=== PATIENT | female | born 1955 | race Hispanic/Latino ===

== ENCOUNTER → 2019-06-16 | Day surgery (SDC) | payer OTHER ==
[~2019-06-16] MED LIST: LIDOCAINE HCL 2% LOCAL INJ 5 ML SDV VIAL INJ ONE; LOSARTAN POTASS25 MG PO; MIDAZOLAM HCL 2 MG/2 ML VIAL ONE; OXYBUTYNIN CHLOR5 MG PO; PROPOFOL IV EMULSION 10 MG/ML 50 ML VIAL ONE; ULTRAM50 MG PO
--- OUTSIDE RECORDS SUMMARY | 2019-06-16 09:45 | XMS REPORT ---
Author Author [facility] Address Unknown Phone Unavailable Care Team Providers Care Managed Care Liaison Name Role Phone Rosa CARRILLO Unavailable Unavailable Problems This patient has no known problems. Allergies, Adverse Reactions, Alerts This patient has no known allergies or adverse reactions. Medications This patient has no known medications. Results Test Description Test Time Test Comments Text Results Atomic Results Result Comments FL, [employer] IN OR/30 MINUTE INCREMENTS 2017-05-04 11:01:00 Reason for exam:->Arthroscopic Arthrodisis FLUOROSCOPIC UNIT UTILIZED-NO INTERPRETATION REQUESTED. TROLYTES 2017-04-15 13:46:00 SODIUM (BEAKER) (test jcfn=308) 141 meq/L 136-145 POTASSIUM (BEAKER) (test vbis=717) 4.0 meq/L 3.5-5.1 CHLORIDE (BEAKER) (test yety=372) 108 meq/L 98-107 CO2 (BEAKER) (test lmbv=144) 26 meq/L 22-29 BUN AND [id number] 13:46:00* Test Item Value Reference Range Comments BLOOD UREA NITROGEN (BEAKER) (test vgkx=569) 8 mg/dL 7-21 CREATININE (BEAKER) (test hkwx=099) 0.60 mg/dL 0.57-1.25 EGFR (BEAKER) (test bbaz=6468) 102 mL/min/1.73 sq m ESTIMATED GFR IS NOT ACCURATE CREATININE CLEARANCE IN PREDICTING GLOMERULAR FILTRATION RATE. ESTIMATED GFR IS NOT APPLICABLE FOR DIALYSIS PATIENTS. [id number] 13:21:00* Test Item Value Reference Range Comments HEMOGLOBIN (BEAKER) (test eikw=408) 13.6 GM/DL 11.2-15.7
--- OUTSIDE RECORDS SUMMARY | 2019-06-16 09:45 | XMS REPORT ---
Author Author Admin, [place] Organization Unknown Address Unknown Phone Unavailable PROBLEMS Condition Status Date Provider Notes Cough active Laura Elen Diarrhea completed - Belle Sung Screening for cardiovascular condition active Belle Sung Screening for diabetes mellitus active Belle Sung Colon cancer screening active Belle Sung Ulcerative colitis active Belle Sung Well woman exam active Belle Sung Acute otitis media, right completed - Belle Sung URI completed - Madhumita William Sore throat completed - Madhumita William Overweight active Triston [place] Tobacco use active Elliot Carrizales [place] DIARRHEA completed - Madhumita William Cough completed - Madhumita William Fever completed - Madhumita William Chest pain active Thompson [place] COPD, acute exacerbation completed - Audrey Ari Vaccine against flu/influenza completed - [place] Pain in left lower leg completed - [place] post surgery Sinusitis, acute completed - Audrey Ari Weight loss abnormal completed - [place] Lumbosacral radiculopathy active Audrey Ari BMI 27.0-27.9 active Madhumita William Piriformis muscle spasm, right active Eliel Crum Anxiety active Audrey Ari DEPRESSION, MAJOR active Audrey Ari Arthritis, ankle/foot active Audrey Ari OTITIS MEDIA, ACUTE, RIGHT completed - [place] Muscle spasm of neck completed - [place] Bronchitis, acute completed - Audrey Ari Otitis media, left completed - Audrey Ari Tinea corporis completed - Audrey Ari Flu vaccine completed - [place] Foot pain, left completed - [place] ABDOMINAL PAIN, EPIGASTRIC completed - Audrey Ari Arrhythmia? completed - [place] GERD active Audrey Ari Chronic back pain active Audrey Ari previous MRI at [facility] but no records obtained. Recent MRI denied by insurance. Unable to follow with pain management HYPERTENSION active Audrey Ari COPD active Audrey Ari Mixed incontinence active Audrey Ari ENCOUNTERS Date Type Provider Location Encounter Diagnosis - Ambulatory Encounter [facility] [place] [facility] [facility] UNK - Ambulatory Encounter Belle Jorge [facility] UNK - Ambulatory Encounter Sarah Monroy [facility] UNK - Ambulatory Encounter Laura Myrick [facility] UNK - Ambulatory Encounter Triston [place] [facility] Laura Myrick [facility] UNK - Ambulatory Encounter Laura Kasper [facility] UNK - Ambulatory Encounter F[facility] - Ambulatory Encounter Belle Sung Belle Sung [facility] UNK - Ambulatory Encounter Belle Sung Belle Sung [facility] UNK - Ambulatory Encounter Belle Sung Belle Sung [facility] UNK - Ambulatory Encounter Belle Sung Belle Sung [facility] UNK - Ambulatory Encounter Tristno Kasper MedAdherence [facility] UNK - Ambulatory Encounter Laura Myrick [facility] UNK - Ambulatory Encounter Laura Garcia [facility] Cough - Ambulatory Encounter Belle Sung Belle Sung [facility] UNK - Ambulatory Encounter F[facility] - Ambulatory Encounter Fax Status [facility] UN[facility] - Ambulatory Encounter Fax Status [facility] UNK - Ambulatory Encounter Fax Status [facility] UNK - Ambulatory Encounter Fax Status [facility] UNK - Ambulatory Encounter Fax Status [facility] UNK - Ambulatory Encounter Belle Sung Belle Sung [facility] UNK - Ambulatory Encounter Radha Kasper MedAdherence Di [facility]breu [facility] - Ambulatory Encounter Belle Sung Belle Sung [facility] UNK - Ambulatory Encounter Belle Sung Belle Sung [facility] UNK - Ambulatory Encounter Belle Sung Belle Sung [facility] UNK - Ambulatory Encounter Triston Short Belle Sung [place] Tracey Garcia [facility] Well woman examUlcerative colitisColon cancer screeningScreening for diabetes mellitusScreening for cardiovascular conditionDiarrhea - Ambulatory Encounter Belle Sung Belle Sung [facility] UNK - Ambulatory Encounter Belle Sung Belle Sung [facility] UNK - Ambulatory Encounter Belle Sung Belle Sung [facility] UNK - Ambulatory Encounter Belle Sung Belle Sung [facility] UNK - Ambulatory Encounter Jodi Odonnell Sung [place] Sheree Argueta [facility] Acute otitis media, right - Ambulatory Encounter Vicky Frank [facility] UNK - Ambulatory Encounter Radha Kasper MedAdherence Anusha Galvin [facility] Contact Center UNK - Ambulatory Encounter Jodi Graham [facility] UNK - Ambulatory Encounter Tracey Kasper MedAdherence Elroy Craig [facility] Services UNK - Ambulatory Encounter Sarah Kasper Med[facility]herence [facility] UNK - Ambulatory Encounter Radha Kasper MedAdherence Di Hernández Kojo [facility] Services UNK - Ambulatory Encounter Fax Status [facility] Services UNK - Ambulatory Encounter Fax Status [facility] Services UNK - Ambulatory Encounter Fax Status [facility] Services UNK - Ambulatory Encounter Sarah Aziza Porfirio Jeimy Sheikh [facility] UNK - Ambulatory Encounter Sarah Aziza Porfirio [facility] UNK - Ambulatory Encounter Sarah Aziza Porfirio [facility] UNK - Ambulatory Encounter Sarah Aziza Porfirio Carrie Aguilar [facility] UNK - Ambulatory Encounter Madhumita William Madhumita William [facility] UNK - Ambulatory Encounter Madhumita William Madhumita William Vicky Frank [facility] FeverCoughDIARRHEASore throatURI - Ambulatory Encounter Laura Mclean [facility] UNK - Ambulatory Encounter Karri Mclean [facility] UNK - Ambulatory Encounter Karri Mclean [facility] UNK - Ambulatory Encounter Laura Lopez [facility] Contact Center UNK - Ambulatory Encounter Fax Status [facility] Services UNK - Ambulatory Encounter Fax Status [facility] Services UNK - Ambulatory Encounter Fax Status [facility] UNK - Ambulatory Encounter Laura Myrick [facility] UNK - Ambulatory Encounter Laura Myrick Anne Bobby Babcock Adolfo [facility] Sore throatURI - Ambulatory Encounter Elliot [place]abuife Elliot Carrizales [place] [facility] UNK - Ambulatory Encounter Elliot Pakabuife Elliot Carrizales [place] [facility] UNK - Ambulatory Encounter April Reese [facility] UNK - Ambulatory Encounter Fax Status [facility] UNK - Ambulatory Encounter Fax Status [facility] UNK - Ambulatory Encounter Fax Status [facility] UNK - Ambulatory Encounter Fax Status [facility] UNK - Ambulatory Encounter Fax Status [facility] UNK - Ambulatory Encounter Fax Status [facility] UNK - Ambulatory Encounter Elliot Pakabuife Elliot Santosian [place] [facility] UNK - Ambulatory Encounter Elliot Pakabuife Elliot Santosian [place] [facility] UNK - Ambulatory Encounter Elliot Pakabuife Elliot Santosian [place] [facility] UNK - Ambulatory Encounter Triston Archibaldkwuemeluz elena Pakabuiangeles Floyd [facility] Tobacco useOverweight - Ambulatory Encounter Yoko Mata [facility] UNK - Ambulatory Encounter Radha Kasper [facility] UNK - Ambulatory Encounter Radha Kasper [facility] - Ambulatory Encounter Audrey Ari Orantesbeen [facility] UNK - Ambulatory Encounter Paula Richey [facility] UNK - Ambulatory Encounter Paula Richey [facility] UNK - Ambulatory Encounter Vicky Lam [facility] UNK - Ambulatory Encounter Audrey Ari Chapman [facility] UNK - Ambulatory Encounter Audrey Ari Orantesbesofie Antoine [facility] COPD, acute exacerbationFeverCoughDIARRHEA - Ambulatory Encounter [place] [facility] UNK - Ambulatory Encounter Donita Longoriao MedAdherence [facility] UNK - Ambulatory Encounter Donita Rajat MedAdherence [facility] UNK - Ambulatory Encounter Fax Status [facility] Services UNK - Ambulatory Encounter Fax Status [facility] UNK - Ambulatory Encounter Radha Kasper [facility] - Ambulatory Encounter Thompson Vail [facility] UNK - Ambulatory Encounter Isaiah Dinesh [facility] UNK - Ambulatory Encounter Isaiah Edwardsillo [facility] UNK - Ambulatory Encounter April Vail [facility] Arrhythmia?Foot pain, leftFlu vaccineMuscle spasm of neckOTITIS MEDIA, ACUTE, RIGHTWeight loss abnormalPain in left lower legVaccine against flu/influenzaChest pain - Ambulatory Encounter Radha [facility] - [facility] Encounter Radha [facility]asper [facility] - Ambulatory Encounter Radha Kasper MedAdherence [facility] UNK - Ambulatory Encounter Radha Kasper [facility] - Ambulatory Encounter Radha Kasper MedAdherence [facility] UNK - Ambulatory Encounter Radha Kasper MedAdherence [facility] UNK - Ambulatory Encounter Audrey Ari Audrey Ari [facility] UNK - Ambulatory Encounter Audrey Ari Audrey Ari Mclean [facility] COPD, acute exacerbation - Ambulatory Encounter Donita Earl [facility] UN[facility] - Ambulatory Encounter Donita Earl [facility] UNK - Ambulatory Encounter Donita Earl [facility] UNK - Ambulatory Encounter Donita Earl MedAdherence Link[facility] UNK - Ambulatory Encounter Donita Earl MedAdherence [facility] UNK - Ambulatory Encounter Donita Earl MedAdherence [facility] UNK - Ambulatory Encounter Donita Earl [facility] UNK - Ambulatory Encounter Donita Earl MedAdherence [facility] UNK - Ambulatory Encounter Donita Earl [facility] UNK - Ambulatory Encounter Audrey Ari [facility] - Ambulatory Encounter Audrey Ari Audrey Ari Mclean [facility] UNK - Ambulatory Encounter Ju Dickinson [facility] UNK - Ambulatory Encounter Carmen Thomas [facility] UNK - Ambulatory Encounter Fax Status [facility] UNK - Ambulatory Encounter Fax Status [facility] UNK - Ambulatory Encounter Fax Status [facility] UNK - Ambulatory Encounter Audrey Ari Audrey Ari [facility] UNK - Ambulatory Encounter Audrey Ari Audrey Ari Harris [facility] UNK - Ambulatory Encounter Gaye Lam [facility] UNK - Ambulatory Encounter Scottmitethan Thomas [facility] UNK - Ambulatory Encounter Radha Kasper MedAdherence [facility] UNK - Ambulatory Encounter Radha Kasper MedAdherence [facility] UNK - Ambulatory Encounter Radha Kasper MedAdherence [facility] UNK - Ambulatory Encounter Audrey Arisofie Orantesbeen [facility] UNK - Ambulatory Encounter Audrey Arisofie Hernández [facility] Sinusitis, acute - Ambulatory Encounter Madterramitethan William Scottmita William [facility] UNK - Ambulatory Encounter Scottmita William Madterramita William [facility] UNK - Ambulatory Encounter Madterramita William Scottmita William Claudio [facility] Sinusitis, acutePain in left lower legVaccine against flu/influenza - Ambulatory Encounter Darline [facility] UNK - Ambulatory Encounter Darline Mclean [facility] UNK - Ambulatory Encounter Radha Kasper MedAdherence [facility] UNK - Ambulatory Encounter Radha Kasper MedAdherence [facility] UNK - Ambulatory Encounter Radha Kasper MedAdherence [facility] UNK - Ambulatory Encounter Audrey Ari Chapman [facility] UNK - Ambulatory Encounter Audrey Arisofie Chapman [facility] UNK - Ambulatory Encounter Audrey Hernández [facility] Weight loss abnormal - Ambulatory Encounter Paula Richey [facility] UNK - Ambulatory Encounter Audrey Champan [facility] UNK - Ambulatory Encounter Audrey Arisofie Lam [facility] Lumbosacral radiculopathy - Ambulatory Encounter Isaiah Montiel [facility] UNK - Ambulatory Encounter Isaiah Dinesh [facility] UNK - Ambulatory Encounter Eliel rCum [facility] UNK - Ambulatory Encounter Eliel Crum [facility] UNK - Ambulatory Encounter Triston Crum Madhumita William Madhumita William Audrey Medina [facility] Piriformis muscle spasm, rightBMI 27.0-27.9 - Ambulatory Encounter Silvia Bk [facility] UNK - Ambulatory Encounter Silvia Bk [facility] UNK - Ambulatory Encounter Audrey Ari Ventura [facility] UNK - Ambulatory Encounter Fax Status [facility] UNK - Ambulatory Encounter Fax Status [facility] UNK - Ambulatory Encounter Fax Status [facility] UNK - Ambulatory Encounter Audrey Ari Audrey Ari [facility] UNK - Ambulatory Encounter Audrey Ari Audrey Ari Machado [facility] OTITIS MEDIA, ACUTE, RIGHTArthritis, ankle/footDEPRESSION, MAJORAnxiety - Ambulatory Encounter Audrey Ari Audrey Ari [facility] UNK - Ambulatory Encounter Audrey Ari Audrey Ari Mclean [facility] UNK - Ambulatory Encounter Francisca Sanchez [facility] UNK - Ambulatory Encounter Francisca Sanchez [facility] UNK - Ambulatory Encounter Audrey Ari Audrey Ari [facility] UNK - Ambulatory Encounter Audrey Arisofie Oliverera Ari [facility] UNK - Ambulatory Encounter Audrey Ari Audrey Ari Lam [facility] Chronic back pain - Ambulatory Encounter Susan Mclean [facility] UNK - Ambulatory Encounter Susan Mclean [facility] UNK - Ambulatory Encounter Audrey Ari Audrey Ari [facility] UNK - Ambulatory Encounter Audrey Ari Audrey Ari Lam [facility] Tinea corporisOtitis media, leftBronchitis, acuteMuscle spasm of neck - Ambulatory Encounter Radha Kasper [facility] UNK - Ambulatory Encounter Radha Kasper MedAdherence [facility] UNK - Ambulatory Encounter Jodi Graham [facility] UNK - Ambulatory Encounter Audrey Ari Ventura Ari [facility] UNK - Ambulatory Encounter Audrey Arisofie Oliverismael Antoine [facility] UNK - Ambulatory Encounter Ju Dickinson [facility] UNK - Ambulatory Encounter Donita Rajat MedAdherence [facility] UNK - Ambulatory Encounter Donita Earl MedAdherence [facility] UNK - Ambulatory Encounter Tracey Hubbard [facility] UNK - Ambulatory Encounter Jodi Graham [facility] UNK - Ambulatory [facility], acute - Ambulatory Encounter Donita Earl MedAdherence [facility] UNK - Ambulatory Encounter Donita Earl MedAdherence [facility] UNK - Ambulatory Encounter Fax Status [facility] UNK - Ambulatory Encounter Fax Status [facility] UNK - Ambulatory Encounter Fax Status [facility] UNK - Ambulatory Encounter Fax Status LinkLogic [facility] Services UNK - Ambulatory Encounter Donita Earl MedAdherence [facility] UNK - Ambulatory Encounter Donita Earl [facility] UNK - Ambulatory Encounter Audrey Ari Audreyismael Chapman [facility] UNK - Ambulatory Encounter Donita Earl [facility] UN[facility] - Ambulatory Encounter Donita Earl [facility] UNK - Ambulatory Encounter Donita Earl MedAdherence [facility] UNK - Ambulatory Encounter Donita Earl MedAdherFormerly [facility] UNK - Ambulatory Encounter Audrey Arisofie Chapman [facility] UNK - Ambulatory Encounter [facility] UNK - Ambulatory Encounter Audrey Arisofie Santos [facility] UNK - Ambulatory Encounter Audrey Arisofie OrantesJohn Muir [facility] UNK - Ambulatory Encounter Fax Status Link[facility] UNK - Ambulatory Encounter Fax Status [facility] UNK - Ambulatory Encounter Fax Status [facility] UNK - Ambulatory Encounter Fax Status [facility] UNK - Ambulatory Encounter Audrey Ari Chapman [facility] - Ambulatory Encounter Audrey Ari Audrey Ari [facility] UNK - Ambulatory Encounter Fax Status [facility] UNK - Ambulatory Encounter Fax Status [facility] UNK - Ambulatory Encounter Fax Status [facility] UNK - Ambulatory Encounter Audrey Ari Audrey Ari [facility] UNK - Ambulatory Encounter Audrey Ari Audrey Ari Swift [facility] ABDOMINAL PAIN, EPIGASTRICTinea corporisOtitis media, left - Ambulatory Encounter Audrey Ari Audrey Ari Samaniego [facility] UNK - Ambulatory Encounter Audrey Ari Audrey AriJohn [facility]ir [facility] UNK - Ambulatory Encounter Audrey Ari Audrey Ari Singh [facility] Foot pain, leftFlu vaccine - Ambulatory Encounter [facility] UNK - Ambulatory Encounter [facility] UNK - Ambulatory Encounter Audrey Ari Audrey Ari [facility] UNK - Ambulatory Encounter Radha Kasper MedAdherence Audrey Ari [facility] - Ambulatory Encounter Audrey Ari Audrey Ari [facility] UNK - Ambulatory Encounter Audrey Ari Audrey Ari [facility] UNK - Ambulatory Encounter Audrey Ari [facility] - Ambulatory Encounter Audrey Ari Audrey Ari Singh [facility] ABDOMINAL PAIN, EPIGASTRIC - Ambulatory Encounter Audreyismael Ventura [facility] UNK - Ambulatory Encounter Audrey Ari Audrey AriDavid [facility] - Ambulatory Encounter Medical Records Desktop Sheree Gallegoraul Cleaning [facility] UNK - Ambulatory Encounter Audrey Ari Ventura [facility] UNK - Ambulatory Encounter Audrey Arisofie [facility]Jer[facility] UNK - Ambulatory Encounter Audrey Ari Curtis [facility] Mixed incontinenceCOPDHYPERTENSIONChronic back painGERDArrhythmia? - Ambulatory Encounter Ju Dickinson [facility] UNK - Ambulatory Encounter Taoist Kim [facility] UNK VITAL SIGNS No Information Available ALLERGIES Allergy Name Onset Date Reaction Criticality Status CIPRO rash, vomiting Low Criticality active REASON FOR REFERRAL Start Date - End Date Service - X-RAY - Mammogram - Screening - Podiatry - External - Urology - External - CT Scan - Xray RESULTS Date Observation Value Provider Reference Range Interpretation Location hemoglobin A1C, blood, as % of total hemoglobin 5.5 % [facility] 4.8-5.6 " LDL cholesterol, serum 74 mg/dL [facility] 0-99 " very low density lipoproteins 18 mg/dL [facility] 5-40 " HDL cholesterol, serum 63 mg/dL [facility] >39 " triglyceride, serum, fasting 89 mg/dL [facility] 0-149 " cholesterol, serum 155 mg/dL [facility] 100-199 " alanine aminotransferase (SGPT), serum 11 1/L [facility] 0-32 " aspartate aminotransferase (SGOT), serum 17 1/L [facility] 0-40 " alkaline phosphatase, serum 105 1/L [facility] 39-117 " bilirubin, serum, total <0.2 mg/dL [facility] 0.0-1.2 " albumin/globulin ratio, serum 1.7 [facility] 1.2-2.2 " globulin, serum 2.3 [facility] 1.5-4.5 " albumin, serum 4.0 g/dL [facility] 3.6-4.8 " protein, total, serum 6.3 g/dL [facility] 6.0-8.5 " calcium, serum 8.9 mg/dL [facility] 8.7-10.3 " carbon dioxide, venous blood 24 mmol/L [facility] 20-29 " chloride, serum 104 mmol/L [facility] 96-106 " potassium, serum 4.2 mmol/L [facility] 3.5-5.2 " sodium, serum 143 mmol/L [facility] 134-144 " urea nitrogen/creatinine ratio, serum 16 [facility] 12-28 " eGFR if 120 mL/min/((173/100).m2) [facility] >59 " Estimated Glomerular Filtration Rate (calc) 104 mL/min/((173/100).m2) [facility] >59 " creatinine, serum 0.51 mg/dL [facility] 0.57-1.00 Low " urea nitrogen, blood 8 mg/dL [facility] 8-27 " blood glucose, random 84 mg/dL [facility] 65-99 Microbial identification kit, rapid strep method negative Laura Myrick influenza B virus antigen negative Audrey Chapman " influenza virus A antigen negative Audrey Chapman lipase, serum 14 U/L [facility] 0-59 hemoglobin A1C, blood, as % of total hemoglobin 6.1 % [facility] 4.8-5.6 High " LDL cholesterol, serum 107 mg/dL [facility] 0-99 High " very low density lipoproteins 21 mg/dL [facility] 5-40 " HDL cholesterol, serum 60 mg/dL [facility] >39 " triglyceride, serum, fasting 106 mg/dL [facility] 0-149 " cholesterol, serum 188 mg/dL [facility] 100-199 " alanine aminotransferase (SGPT), serum 14 1/L [facility] 0-32 " aspartate aminotransferase (SGOT), serum 14 1/L [facility] 0-40 " alkaline phosphatase, serum 124 1/L [facility] 39-117 High " bilirubin, serum, total 0.3 mg/dL [facility] 0.0-1.2 " albumin/globulin ratio, serum 1.6 [facility] 1.1-2.5 " globulin, serum 2.6 [facility] 1.5-4.5 " albumin, serum 4.1 g/dL [facility] 3.5-5.5 " protein, total, serum 6.7 g/dL [facility] 6.0-8.5 " calcium, serum 9.8 mg/dL [facility] 8.7-10.2 " carbon dioxide, venous blood 27 mmol/L [facility] 18-29 " chloride, serum 99 mmol/L [facility] 97-108 " potassium, serum 4.9 mmol/L [facility] 3.5-5.2 " sodium, serum 141 mmol/L [facility] 134-144 " urea nitrogen/creatinine ratio, serum 22 [facility] 9-23 " eGFR if 120 mL/min/((173/100).m2) [facility] >59 " Estimated Glomerular Filtration Rate (calc) 104 mL/min/((173/100).m2) [facility] >59 " creatinine, serum 0.55 mg/dL [facility] 0.57-1.00 Low " urea nitrogen, blood 12 mg/dL [facility] 6-24 " blood glucose, random 106 mg/dL [facility] 65-99 High HISTORY OF IMMUNIZATIONS Date Vaccine Dose Lot Number Status zostavax sq [id number] [employer] [id number] mL [id number] completed adacel im [id number] sanofi pasteur 0.5 mL [id number] completed HISTORY OF MEDICATION USE Medication Instructions Dates Provider Comments ANUCORT-HC 25 MG RECTAL SUPPOSITORY 1 suppository every 8 hours as needed for rectal pain/hemorrhoids Laura Myrick LOPERAMIDE HCL 2 MG ORAL TABLET take 1 tablet by mouth as needed Belle Sung LOSARTAN POTASSIUM 50 MG ORAL TABLET 1 By Mouth once a day Belle Sung GABAPENTIN 300 MG ORAL CAPSULE 2 by mouth three times a day Belle Sung Filled by Dr. Valdez Miller AMOXICILLIN-POT CLAVULANATE 875-125 MG ORAL TABLET Take 1 tab by mouth twice a day - Laura Myrick RESTORIL 7.5 MG ORAL CAPSULE 1 tab By Mouth daily Sarah Pinedaatius SINGULAIR 10 MG ORAL TABLET 1 by mouth nightly at bedtime Sarah Monroy DICLOFENAC SODIUM 1 % TRANSDERMAL GEL apply to affected area TID As Needed pain Sarah Monroy LIDOCAINE 5 % EXTERNAL PATCH use 1 patch daily As Needed Carmen Thomas TIZANIDINE HCL 4 MG ORAL TABLET 1 By Mouth three times a day as needed for muscle spasm Carmen Thomas AMITRIPTYLINE HCL 25 MG ORAL TABLET 1 by mouth nightly at bedtime - Sarah Monroy OXYBUTYNIN CHLORIDE ER 15 MG ORAL TABLET EXTENDED RELEASE 24 HOUR take 1 tab By Mouth daily Carmen Thomas TRAMADOL HCL 50 MG ORAL TABLET 1 tablets by mouth 2 times a day as needed for pain Belle Sunbasilio Filled by pain management Dr. Valdez Miller PROMETHAZINE-DM 6.25-15 MG/5ML ORAL SYRUP 5mL By Mouth every 6 hours as needed for cough/congestion - Carmen Martineza AUGMENTIN 500-125 MG ORAL TABLET 1 tablet by mouth twice daily for 10 days - Carmen Martineza MOBIC 15 MG ORAL TABLET 1 by mouth daily - Carmen Martineza ASPIRIN 81 MG ORAL TABLET DELAYED RELEASE 1 by mouth every day Thompson Vail GUAIFENESIN-CODEINE 100-10 MG/5ML ORAL SOLUTION 10 ml every 6 hrs as needed for cough - Carmen Thomas PREDNISONE 20 MG ORAL TABLET 2 tablet once daily for 5 days - Audrey Chapman AZITHROMYCIN 250 MG ORAL TABLET 2 tablets by mouth on day one then one tablet by mouth each day for a total of 5 days - Thompson Vail AMOXICILLIN 500 MG ORAL CAPSULE 1 by mouth 2 times a day - Audrey Chapman WELLBUTRIN SR 150 MG ORAL TABLET EXTENDED RELEASE 12 HOUR 1 by mouth twice a day - Carmen Thomas AMOXICILLIN-POT CLAVULANATE 500-125 MG ORAL TABLET 1 tab By Mouth Twice a Day x 10 days - Carmen Thomas FLONASE ALLERGY RELIEF 50 MCG/ACT NASAL SUSPENSION 2 sprays each nostril every day Carmen Thomas CYCLOBENZAPRINE HCL 10 MG ORAL TABLET 1 By Mouth three times a day as needed for muscle spasm - Audrey Chapman NAPROXEN 500 MG ORAL TABLET 1 by mouth twice a day as needed for pain and inflammation - Thompson Vail AMOXICILLIN 500 MG ORAL CAPSULE 1 by mouth 3 times a day - Audrey Chapman OMEPRAZOLE 20 MG ORAL CAPSULE DELAYED RELEASE 1 by mouth every day - Thompson Vail GABAPENTIN 300 MG ORAL CAPSULE 1 by mouth three times a day - Thompson Vail BACLOFEN 10 MG ORAL TABLET one tablet by mouth three times a day as needed for muscle spasm - Audrey Chapman ALTARUSSIN DM 100-10 MG/5ML ORAL SYRUP 5 mL By Mouth Every 4-6 hours for cough - Audrey Chapman AUGMENTIN 875-125 MG ORAL TABLET 1 by mouth twice a day - Audrey Chapman LORTAB 10-300 MG/15ML ORAL ELIXIR 5 mL every 6 hours as needed for cough and sore throat - Jodi Graham ACID CONTROL 150 MG ORAL TABLET 1 By Mouth Every day - Audrey Chapman CLOTRIMAZOLE 1 % EXTERNAL CREAM apply Twice a Day to affected areas - Audrey Chapman AMOXICILLIN 500 MG ORAL CAPSULE 1 by mouth 3 times a day - Audrey Chapman VOLTAREN 1 % TRANSDERMAL GEL Apply to affected area two times daily - Thompson Vail OXYBUTYNIN CHLORIDE 5 MG ORAL TABLET Take one tabet by mouth twice daily - Carmen Thomas TESSALON PERLES 100 MG ORAL CAPSULE 1 by mouth 3 times a day as needed for cough - Audrey Chapman OMEPRAZOLE 40 MG ORAL CAPSULE DELAYED RELEASE 1 By Mouth Every Day - Audrey Chapman NITROSTAT 0.4 MG SUBLINGUAL TABLET SUBLINGUAL 1 SL every 5 min as needed for chest pain, max 3 doses per episode Audrey Chapman CYCLOBENZAPRINE HCL 10 MG ORAL TABLET 1 By Mouth three times a day as needed for muscle spasm - Audrey Chapman TRAMADOL HCL 50 MG ORAL TABLET 1-2 tablets by mouth 4 times a day as needed for pain - Thompson Vail SYMBICORT 160-4.5 MCG/ACT INHALATION AEROSOL 2 inhalation bid Audrey Chapman DETROL LA 4 MG ORAL CAPSULE EXTENDED RELEASE 24 HOUR Take one tablet by mouth once daily - Audrey Chapman SINGULAIR 10 MG ORAL TABLET 1 by mouth nightly at bedtime Laura Myrick AMLODIPINE BESYLATE 5 MG ORAL TABLET 1 tab by mouth daily Audrey Chapman LISINOPRIL 10 MG ORAL TABLET 1 by mouth every day - Belle Jorge OMEPRAZOLE 20 MG ORAL CAPSULE DELAYED RELEASE 1 by mouth every day - Audrey Chapman SOCIAL HISTORY Date Observation Value Provider drug use, illicit Never Melba S Garcia " alcohol use Never Melba S Garcia " social history reviewed E&M reviewed today Melba S Garcia " sexual orientation Heterosexual Melba S Garcia " assessment of health literacy ([facility] 2014 Standards, 3C10) Adequate Melba S Garcia " passive cigarette smoke exposure No Melba S Garcia " smoking status current every day smoker Melba S Garcia time of call 03/27/2019 2:56 PM Dali Hernandez Exercise Program Referral T Betty Floyd " Weight Management Counseling Provided T Betty Floyd " Nutrition intervention T Betty Floyd " assessment of health literacy ([facility] 2014 Standards, 3C10) Adequate Tracey Da Silva " sexual orientation Heterosexual Tracey Da Silva " drug use, illicit Never Tracey Da Silva " alcohol use Never Tracey Da Silva " social history reviewed E&M reviewed today Tracey Da Silva " is there any chance that you could be ? No Tracey Da Silva " passive cigarette smoke exposure No Tracey Da Silva " smoking status current every day smoker Belle Jorge Exercise Program Referral T Belle Jorge " Weight Management Counseling Provided T Belle Sung " Nutrition intervention T Belle Sung " social history reviewed E&M reviewed today Sheree Argueta " sexual orientation Heterosexual Sheree Argueta " assessment of health literacy ([facility] 2014 Standards, 3C10) Adequate Sheree Argueta " is there any chance that you could be ? No Sheree Argueta " passive cigarette smoke exposure No Sheree Argueta " smoking status never smoker Sheree Argueta time of call 02/12/2019 3:37 PM Anusha Galvin time of call 02/11/2019 2:07 PM Elroy Craig time of call 02/09/2019 2:37 PM Betty Varma drug use, illicit Never Carrie Aguilar " alcohol use Never Carrie Aguilar " social history reviewed E&M reviewed today Carrie Jack " sexual orientation Heterosexual Carrie Aguilar " assessment of health literacy ([facility] 2014 Standards, 3C10) Adequate Carrie Aguilar " is there any chance that you could be ? No Carrie Aguilar " passive cigarette smoke exposure Yes Carrie Aguilar " smoking status current every day smoker Carrie Aguilar " Exercise Program Referral T Carrie Aguilar " Weight Management Counseling Provided T Carrie Aguilar " Nutrition intervention T Carrie Augilar smoking, advice to quit Yes Madhumita William " social history reviewed E&M reviewed today Vicky Frank " sexual orientation Heterosexual Vicky Frank " assessment of health literacy ([facility] 2014 Standards, 3C10) Adequate Vicky Araujoz " passive cigarette smoke exposure Yes Vicky Frank " smoking status current every day smoker Vicky Frank " Exercise Program Referral T Vicky Frank " Weight Management Counseling Provided T Vicky Frank " Nutrition intervention T Vicky Frank time of call 10/10/2018 9:39 AM Nate Lopez Exercise Program Referral T Anne Rosales " Weight Management Counseling Provided T Anne Duarteierrez " Nutrition intervention T Anne Rosales " cigarettes, number smoked per day 10-12 Anne Rosales " drug use, illicit Never Anne Rosales " alcohol use Never Anne Rosales " social history reviewed E&M reviewed today Anne Duarteierrez " sexual orientation Heterosexual Anne Rosales " assessment of health literacy ([facility] 2014 Standards, 3C10) Adequate Anne Rosales " passive cigarette smoke exposure Yes Anne Rosales " smoking status current every day smoker Anne Rosales drug use, illicit Never Carrie Aguilar " alcohol use Never Carrie Aguilar " social history reviewed E&M reviewed today Carrie Aguilar " sexual orientation Heterosexual Carrie Aguilar " assessment of health literacy ([facility] 2014 Standards, 3C10) Adequate Carrie Aguilar " is there any chance that you could be ? No Carrie Aguilar " passive cigarette smoke exposure Yes Carrie Aguilar " smoking status current every day smoker Carrie Aguilar " Exercise Program Referral T Carrie Aguilar " Weight Management Counseling Provided T Carrie Sheikh " Nutrition intervention T Carrie Sheikh Exercise Program Referral T Audrey Chapman " Weight Management Counseling Provided T Audrey Chapman " Nutrition intervention T Audrey Chapman " drug use, illicit Never Belem Antoine " alcohol use Never Belem Antoine " social history reviewed E&M reviewed today Belem Antoine " passive cigarette smoke exposure Yes Belem Antoine " smoking status current every day smoker Belem Antoine " assessment of health literacy ([facility] 2014 Standards, 3C10) Adequate Belem Antoine Exercise Program Referral T Thompson Vail " Weight Management Counseling Provided T Thompson Vail " Nutrition intervention T Thompson [place]ail " drug use, illicit Never Anne Rosales " alcohol use Never Anne Rosales " social history reviewed E&M reviewed today Anne Rosales " passive cigarette smoke exposure Yes Anne Rosales " smoking status current every day smoker Anne Rosales " assessment of health literacy ([facility] 2014 Standards, 3C10) Adequate Anne Rosales sexual orientation Heterosexual Luba Vinay " passive cigarette smoke exposure Yes Luba Vinay " smoking, advice to quit Yes Luba Vinay " smoking status current every day smoker Luba Vinay " assessment of health literacy ([facility] 2014 Standards, 3C10) Adequate Luba Vinay social history reviewed E&M reviewed today Audrey Chapman " sexual orientation Heterosexual Luba Vinay " passive cigarette smoke exposure Yes Luba Vinay " smoking, advice to quit Yes Luba Vinay " smoking status current every day smoker Luba Vinay " assessment of health literacy ([facility] 2014 Standards, 3C10) Adequate Luba Vinay drug use, illicit Never Belem Antoine " alcohol use Never Belem Antoine " social history reviewed E&M reviewed today Belem Antoine " passive cigarette smoke exposure Yes Belem Antoine " smoking status current every day smoker Belem Antoine " assessment of health literacy ([facility] 2014 Standards, 3C10) Adequate Belem Antoine " drug use, illicit Never Vicky Genaro " alcohol use Never Vicky Genaro " social history reviewed E&M reviewed today Vicky Genaro " sexual orientation Heterosexual Vicky Lam " passive cigarette smoke exposure Yes Vicky Lam " smoking, advice to quit Yes Vicky Lam " smoking status current every day smoker Vicky Lam " assessment of health literacy ([facility] 2014 Standards, 3C10) Adequate Vicky Lam " Exercise Program Referral T Vicky Lam " Weight Management Counseling Provided T Vicky Lam " Nutrition intervention T Vicky Lam drug use, illicit Never Johnnie González " alcohol use Never Johnnie González " social history reviewed E&M reviewed today Johnnie González " sexual orientation Heterosexual Johnnie González " passive cigarette smoke exposure No Johnnie González " smoking status current every day smoker Johnnie González " assessment of health literacy ([facility] 2014 Standards, 3C10) Adequate Johnnie González " Exercise Program Referral T Johnnie González " Weight Management Counseling Provided T Johnnie González " Nutrition intervention T Johnnie González is there any chance that you could be ? No Donaldjoao Anna " sexual orientation Heterosexual Donald Anna " smoking, advice to quit Yes Donald Anna " passive cigarette smoke exposure No Donald Shoshana " assessment of health literacy ([facility] 2014 Standards, 3C10) Adequate Donald Shoshana " drug use, illicit Never Donald Anna " alcohol use Never Donald Anna " smoking status current every day smoker Donald Anna drug use, illicit Never Vicky Lam " alcohol use Never Vicky Lam " social history reviewed E&M reviewed today Vicky Lam " sexual orientation Heterosexual Vicky Lam " cigarettes, number smoked per day 1pk Vicky Lam " smoking, advice to quit Yes Vicky Lam " passive cigarette smoke exposure Yes Vicky Lam " smoking status current every day smoker Vicky Lam " assessment of health literacy ([facility] 2014 Standards, 3C10) Adequate Vicky Lam " Exercise Program Referral T Vicky Lam " Weight Management Counseling Provided T Vicky Lam " Nutrition intervention T Vicky Genaro drug use, illicit Never Vicky Medina " alcohol use Never Vicky Medina " social history reviewed E&M reviewed today Vicky Medina " passive cigarette smoke exposure Yes Vicky Medina " smoking status current every day smoker Vicky Medina " Exercise Program Referral T Vicky Blackwells " Weight Management Counseling Provided T Vicky Blackwells " Nutrition intervention T Vicky Blackwells " drug use, illicit Never Vicky Medina " alcohol use Never Vicky Medina " social history reviewed E&M reviewed today Vicky Medina " sexual orientation Heterosexual Vicky Medina " passive cigarette smoke exposure Yes Vicky Medina " smoking status current every day smoker Vicky Medina " Exercise Program Referral T Vicky Medina " Weight Management Counseling Provided T Vicky Medina " Nutrition intervention T Vicky Blackwells sexual orientation Heterosexual Lubaethan Mclean " passive cigarette smoke exposure Yes Lubaethan Mclean " cigarettes, number smoked per day 1 pack a day Luba Vinay " smoking, advice to quit Yes Luba Vinay " smoking status current every day smoker Luba Vinay social history reviewed E&M reviewed today Vicky Lam " cigarettes, number smoked per day 1pk Vicky Lam " smoking, advice to quit Yes Vicky Lam " passive cigarette smoke exposure Yes Vicky Lam " smoking status current every day smoker Vicky Lam " Exercise Program Referral T Vicky Lam " Weight Management Counseling Provided T Vicky Lam " Nutrition intervention T Vicky Lam sexual orientation Heterosexual Vicky Lam " drug use, illicit Never Vicky Lam " alcohol use Never Vicky Lam " social history reviewed E&M reviewed today Vicky Lam " smoking, advice to quit Yes Vicky Lam " passive cigarette smoke exposure Yes Vicky Lam " smoking status current every day smoker Vicky Lam " Exercise Program Referral T Vicky Lam " Weight Management Counseling Provided T Vicky Lam " Nutrition intervention T Vicky Lam social history reviewed E&M reviewed today Belem Antoine " drug use, illicit Never Belem Antoine " alcohol use Never Belem Antoine " passive cigarette smoke exposure Yes Belem Antoine " smoking status current every day smoker Belem Antoine drug use, illicit Never Johnnie González " alcohol use Never Johnnie González " social history reviewed E&M reviewed today Johnnie González " sexual orientation Heterosexual Johnnie González " passive cigarette smoke exposure Yes Johnnie González " cigarettes, number smoked per day 1pack Johnnie González " smoking, advice to quit Yes Johnnie González " smoking status current every day smoker Johnnie González drug use, illicit Never Kirsten Singh " alcohol use Never Kirsten Singh " social history reviewed E&M reviewed today Kirsten Singh " sexual orientation Heterosexual Kirsten Singh " passive cigarette smoke exposure Yes Kirsten Singh " cigarettes, number smoked per day 1 pack Kirsten Singh " smoking, advice to quit Yes Kirsten Singh " smoking status current every day smoker Kirsten Singh " Exercise Program Referral Daniel Singh " Weight Management Counseling Provided Daniel Singh " Nutrition intervention Daniel Singh drug use, illicit Never Kirsten Singh " alcohol use Never Kirsten Singh " social history reviewed E&M reviewed today Kirsten Singh " sexual orientation Heterosexual Kirsten Singh " passive cigarette smoke exposure Yes Kirsten Singh " cigarettes, number smoked per day 1 pack Kirsten Singh " smoking, advice to quit Yes Kirsten Singh " smoking status current every day smoker Kirsten Singh " Exercise Program Referral T Kirsten Singh " Weight Management Counseling Provided T Kirsten Singh " Nutrition intervention T Kirsten Singh drug use, illicit Never Kirsten Singh " alcohol use Never Kirsten Singh " social history reviewed E&M reviewed today Kirsten Singh " sexual orientation Heterosexual Kirsten Singh " passive cigarette smoke exposure Yes Kirsten Singh " cigarettes, number smoked per day 1 pack Kirsten Singh " smoking, advice to quit Yes Kirsten Singh " smoking status current every day smoker Kirsten Singh " Exercise Program Referral Daniel Singh " Weight Management Counseling Provided Daniel Singh " Nutrition intervention Daniel Singh drug use, illicit Never Kirsten Singh " alcohol use Never Kirsten Singh " sex at Female Kirsten Francisco " Occupation #1 Unemployed Kirsten Singh " patient considered to be homeless No Kirsten Singh " social history reviewed E&M reviewed today Kirsten Singh " is there any chance that you could be ? No Kirsten Singh " sexual orientation Heterosexual Kirsten Singh " passive cigarette smoke exposure Yes Kirsten Singh " cigarettes, number smoked per day 1 pack Kirsten Singh " smoking, advice to quit Yes Kirsten Singh " smoking status current every day smoker Kirsten Singh FUNCTIONAL STATUS No Information Available MENTAL STATUS Date Observation Value Provider assessment of judgment and insight E&M intact Laura Myrick " mental status examination: orientation E&M oriented to time, place, and person Laura Myrick " assessment of mood and affect E&M pleasant Laura Myrick " Generalized Anxiety Disorder Questionnaire - Question 2 0 Melba Garcia " Generalized Anxiety Disorder Questionnaire - Question 1 0 Melba Garcia assessment of judgment and insight E&M intact Belle Sung " assessment of mood and affect E&M no depression, anxiety, or agitation Belle Sung " If any problems checked, how difficult have these problems made it for you to do your work, take care of things at home, or get along with other people (GAD7, question 8) 1 Betty Floyd " Generalized Anxiety Disorder Questionnaire - Question 7 1 Betty Floyd " Generalized Anxiety Disorder Questionnaire - Question 6 2 Betty Floyd " Generalized Anxiety Disorder Questionnaire - Question 5 2 Betty Floyd " Generalized Anxiety Disorder Questionnaire - Question 4 3 Betty Floyd " Generalized Anxiety Disorder Questionnaire - Question 3 2 Betty Floyd " Generalized Anxiety Disorder Questionnaire - Question 2 2 Betty Floyd " Generalized Anxiety Disorder Questionnaire - Question 1 2 Betty Floyd assessment of judgment and insight E&M intact Belle Sung " assessment of mood and affect E&M no depression, anxiety, or agitation Belle Sung " Generalized Anxiety Disorder Questionnaire - Question 2 0 Sheree Argueta " Generalized Anxiety Disorder Questionnaire - Question 1 0 Sheree Pittsnandez assessment of mood and affect E&M no depression, anxiety, or agitation Sarah Monroy " Generalized Anxiety Disorder Questionnaire - Question 2 0 Carrie Sheikh " Generalized Anxiety Disorder Questionnaire - Question 1 0 Carrie Sheikh Generalized Anxiety Disorder Questionnaire - Question 2 0 Vicyk Frank " Generalized Anxiety Disorder Questionnaire - Question 1 0 Vicky Frank assessment of judgment and insight E&M intact Laura Myrick " mental status examination: orientation E&M oriented to time, place, and person Laura Myrick " assessment of mood and affect E&M no depression, anxiety, or agitation Laura Myrick " Generalized Anxiety Disorder Questionnaire - Question 2 0 Anne Rosales " Generalized Anxiety Disorder Questionnaire - Question 1 0 Anne Rosales assessment of judgment and insight E&M intact Elliot Patrickuiangeles " mental status examination: orientation E&M oriented to time, place, and person Ellito Pakabuife " assessment of mood and affect E&M no depression, anxiety, or agitation Normamisty Confucianism Mellisaabuife " Generalized Anxiety Disorder Questionnaire - Question 2 0 Carrie Sheikh " Generalized Anxiety Disorder Questionnaire - Question 1 0 Carrie Sheikh assessment of judgment and insight E&M intact Audrey Ari " mental status examination: orientation E&M oriented to time, place, and person Audrey Ari " assessment of mood and affect E&M no depression, anxiety, or agitation Audrey Ari " Generalized Anxiety Disorder Questionnaire - Question 2 0 Belem Antoine " Generalized Anxiety Disorder Questionnaire - Question 1 0 Belem Antoine assessment of judgment and insight E&M intact Thompson Yared " mental status examination: orientation E&M oriented to time, place, and person Thompson Yared " assessment of mood and affect E&M no depression, anxiety, or agitation Thompson Vail " If any problems checked, how difficult have these problems made it for you to do your work, take care of things at home, or get along with other people (GAD7, question 8) 0 Anne Rosales " Generalized Anxiety Disorder Questionnaire - Question 7 1 Anne Rosales " Generalized Anxiety Disorder Questionnaire - Question 6 1 Anne Rosales " Generalized Anxiety Disorder Questionnaire - Question 5 0 Anne Rosales " Generalized Anxiety Disorder Questionnaire - Question 4 0 Anne Rosales " Generalized Anxiety Disorder Questionnaire - Question 3 3 Anne Rosales " Generalized Anxiety Disorder Questionnaire - Question 2 1 Anne Rosales " Generalized Anxiety Disorder Questionnaire - Question 1 1 Anne Rosales assessment of judgment and insight E&M intact Audrey Ari " mental status examination: orientation E&M oriented to time, place, and person Audrey Ari " assessment of mood and affect E&M no depression, anxiety, or agitation Audrey Ari " Generalized Anxiety Disorder Questionnaire - Question 2 0 Luba Mclean " Generalized Anxiety Disorder Questionnaire - Question 1 0 Luba Mclean assessment of judgment and insight E&M intact Audrey Ari " Generalized Anxiety Disorder Questionnaire - Question 2 0 Luba Mclean " Generalized Anxiety Disorder Questionnaire - Question 1 0 Luba Mclean Generalized Anxiety Disorder Questionnaire - Question 2 0 Belem Antoine " Generalized Anxiety Disorder Questionnaire - Question 1 0 Belem Antoine If any problems checked, how difficult have these problems made it for you to do your work, take care of things at home, or get along with other people (GAD7, question 8) 2 Audrey Ari " Generalized Anxiety Disorder Questionnaire - Question 7 3 Audrey Ari " Generalized Anxiety Disorder Questionnaire - Question 6 3 Audrey Ari " Generalized Anxiety Disorder Questionnaire - Question 5 2 Audrey Ari " Generalized Anxiety Disorder Questionnaire - Question 4 2 Audrey Ari " Generalized Anxiety Disorder Questionnaire - Question 3 2 Audrey Ari " Generalized Anxiety Disorder Questionnaire - Question 2 3 Audrey Ari " Generalized Anxiety Disorder Questionnaire - Question 1 3 Audrey Ari " assessment of judgment and insight E&M intact Audreyismael Chapman " mental status examination: orientation E&M oriented to time, place, and person Adureyismael Chapman " assessment of mood and affect E&M crying and sad affect Audreyismael Chapman Generalized Anxiety Disorder Questionnaire - Question 2 0 Johnnie Claudio " Generalized Anxiety Disorder Questionnaire - Question 1 0 Johnnie Claudio Generalized Anxiety Disorder Questionnaire - Question 2 0 Donald Anna " Generalized Anxiety Disorder Questionnaire - Question 1 0 Donald Anna Generalized Anxiety Disorder Questionnaire - Question 2 0 Vicky Lam " Generalized Anxiety Disorder Questionnaire - Question 1 0 Vicky Lam assessment of judgment and insight E&M intact Audreyismael Chapman " assessment of mood and affect E&M no depression, anxiety, or agitation Audreyismael Chapman " If any problems checked, how difficult have these problems made it for you to do your work, take care of things at home, or get along with other people (GAD7, question 8) 1 Vicky Medina " Generalized Anxiety Disorder Questionnaire - Question 7 3 Vicky Blackwells " Generalized Anxiety Disorder Questionnaire - Question 6 3 Vicky Blackwells " Generalized Anxiety Disorder Questionnaire - Question 5 3 Vicky Blackwells " Generalized Anxiety Disorder Questionnaire - Question 4 3 Vicky Blackwells " Generalized Anxiety Disorder Questionnaire - Question 3 3 Vicky Blackwells " Generalized Anxiety Disorder Questionnaire - Question 2 3 Vicky Medina " Generalized Anxiety Disorder Questionnaire - Question 1 3 Vicky Medina Generalized Anxiety Disorder Questionnaire - Question 2 0 Luba Mclean " Generalized Anxiety Disorder Questionnaire - Question 1 0 Luba Mclean Generalized Anxiety Disorder Questionnaire - Question 2 0 Vicky Lam " Generalized Anxiety Disorder Questionnaire - Question 1 0 Vicky Genaro assessment of judgment and insight E&M intact Audrey Ari " assessment of mood and affect E&M no depression, anxiety, or agitation Audrey Ari " Generalized Anxiety Disorder Questionnaire - Question 2 0 Vicky Lam " Generalized Anxiety Disorder Questionnaire - Question 1 0 Vicky Lam Generalized Anxiety Disorder Questionnaire - Question 2 0 Belem Antoine " Generalized Anxiety Disorder Questionnaire - Question 1 0 Belem Antoine assessment of judgment and insight E&M intact Jodi M Ehdaie " assessment of mood and affect E&M anxious Jodi M Ehdaie " Generalized Anxiety Disorder Questionnaire - Question 2 0 Johnnie Claudio " Generalized Anxiety Disorder Questionnaire - Question 1 0 Johnnie Claudio assessment of judgment and insight E&M intact Audrey Ari " assessment of mood and affect E&M no depression, anxiety, or agitation Audrey Ari " Generalized Anxiety Disorder Questionnaire - Question 2 0 Kirsten Singh " Generalized Anxiety Disorder Questionnaire - Question 1 0 Kirsten Singh Generalized Anxiety Disorder Questionnaire - Question 2 0 Kirsten Singh " Generalized Anxiety Disorder Questionnaire - Question 1 0 Kirsten Singh Generalized Anxiety Disorder Questionnaire - Question 2 0 Kirsten Singh " Generalized Anxiety Disorder Questionnaire - Question 1 0 Kirsten Singh assessment of judgment and insight E&M intact Audrey Ari " assessment of mood and affect E&M no depression, anxiety, or agitation Audrey Ari " Generalized Anxiety Disorder Questionnaire - Question 2 0 Kirsten Singh " Generalized Anxiety Disorder Questionnaire - Question 1 0 Kirsten Singh MEDICAL EQUIPMENT No Information Available FAMILY HISTORY No Information Available INSURANCE PROVIDERS No Information Available ADVANCE DIRECTIVES No Information Available TREATMENT PLAN Date Name Pap w/HPV w rflx (30+) Comp. Metabolic Panel (14) Lipid Panel Hemoglobin A1c Lipase, Serum Helicobacter Pylori Urea Breath Test Hemoglobin A1c Lipid Panel Comp. Metabolic Panel (14) - - Reason for referral: hx of intermittent diarrhea and also has ulcerative colitis, due for another - - Reason for referral:heel pain left Gold Card Y/N? - - Reason for referral:Chronic back pain - - - - - - - - - - Est Patient Exp Problem - 14165 Addl Vx - Ix admin via ID IM or jet injects without counseling by physician Zostavax Subcutaneous Solution Reconstituted 14660 UNT/0.65ML First Vx - Ix admin via ID IM or jet injects without counseling by physician Adacel Intramuscular Suspension 5-2-15.5 Est Patient Well Exam (40 - 64 Yrs) - 90337 Vaccines Ordered - Print Consent/Declination Forms Est Patient Exp Problem - 05541 Est Patient Exp Problem - 75277 Est Patient Exp Problem - 34981 Est Patient Exp Problem - 98367 Rapid Strep - In House Est Patient Exp Problem - 32259 Est Patient Exp Problem - 18121 Rapid Flu - In House EKG - Tracing Only Est Patient Exp Problem - 43870 Est Patient Detailed - 58699 Est Patient Exp Problem - 90323 Est Patient Exp Problem - 96763 Est Patient Detailed - 50837 Integrated Behavioral Health Assessment (IBH) Est Patient Exp Problem - 18853 INFLUENZA VACCINE QUADRIVALENT 3 YRS PLUS IM Est Patient Detailed - 97728 Integrated Behavioral Health Assessment (IBH) Est Patient Exp Problem - 53902 Est Patient Exp Problem - 72671 Est Patient Detailed - 42071 Est Patient Exp Problem - 52242 Est Patient Exp Problem - 32859 Est Patient Problem Focus - 78795 Est Patient Problem Focus - 83100 Est Patient Exp Problem - 09587 Est Patient Exp Problem - 49099 Est Patient Exp Problem - 63972 INFLUENZA VACCINE QUADRIVALENT 3 YRS PLUS IM Est Patient Problem Focus - 01853 New Patient Detailed - 37430 HISTORY OF PROCEDURES Procedure Date Procedure Name Provider Procedure Notes Status Addl Vx - Ix admin via ID IM or jet injects without counseling by physician Triston Mayfield completed Zostavax Subcutaneous Solution Reconstituted 34735 UNT/0.65ML Triston Mayfield completed First Vx - Ix admin via ID IM or jet injects without counseling by physician Triston Mayfield completed Adacel Intramuscular Suspension 5-2-15.5 Triston Mayfield completed Vaccines Ordered - Print Consent/Declination Forms Triston Mayfield completed Rapid Strep - In House Laura Myrick completed Rapid Flu - In House Audrey Chapman completed EKG - Tracing Only April Reese completed GOALS No Information Available HEALTH CONCERNS No Information Available
[2019-06-16 12:45] VITALS: BP 130/72
== END | disposition home or self-care (01) ==
LOC: OR 09:41
PROVIDERS: ATTEND Internal Medicine Gastroenterology
DX: K29.70 Gastritis, unspecified, without bleeding (principal); D12.2 Benign neoplasm of ascending colon; D12.4 Benign neoplasm of descending colon; D12.5 Benign neoplasm of sigmoid colon; K31.89 Other diseases of stomach and duodenum; K56.609 Unspecified intestinal obstruction, unspecified as to partial versus complete obstruction; K25.9 Gastric ulcer, unspecified as acute or chronic, without hemorrhage or perforation; K21.9 Gastro-esophageal reflux disease without esophagitis; K58.9 Irritable bowel syndrome, unspecified; K20.9 Esophagitis, unspecified; R19.7 Diarrhea, unspecified; K57.30 Diverticulosis of large intestine without perforation or abscess without bleeding; K64.8 Other hemorrhoids; K44.9 Diaphragmatic hernia without obstruction or gangrene; R63.4 Abnormal weight loss; J44.9 Chronic obstructive pulmonary disease, unspecified; I10 Essential (primary) hypertension; M54.5 Low back pain; R07.9 Chest pain, unspecified; I49.9 Cardiac arrhythmia, unspecified; N39.0 Urinary tract infection, site not specified; F17.210 Nicotine dependence, cigarettes, uncomplicated; Z88.1 Allergy status to other antibiotic agents; Z01.810 Encounter for preprocedural cardiovascular examination
CPT/HCPCS: 43239; 45380; 45384; 45385; 93005; J2001; J2250